=== PATIENT | female | born 1980 | race Caucasian/White ===

== ENCOUNTER 2017-03-15 15:59 | Emergency (ER) | payer SELFPAY ==
[~2017-03-15] VITALS: Ht 162.6 cm; Wt 62.1 kg
[~2017-03-15 15:59] MED LIST: BACL10TA4 PO; LIOT5TAB PO; NAPR500T1 PO
[2017-03-15 16:12] VITALS: BP 122/74
--- NOTE | 2017-03-15 16:49 | NUR ---
Pt taken to bed 7.
[2017-03-15 16:51] LABS: BASOPHILS # (AUTO) 0.1 K/uL (0.00-0.22); BASOPHILS % (AUTO) 1.6 % (0.0-2.0); EOSINOPHILS # (AUTO) 0.1 K/uL (0-0.4); EOSINOPHILS % (AUTO) 2.2 % (0.0-4.0); HEMATOCRIT 41.6 % (36-48); HEMOGLOBIN 13.4 g/dL (12.0-16.0); LYMPHOCYTES # (AUTO) 1.3 K/uL (2.5-16.5); LYMPHOCYTES % (AUTO) 23.7 % (20.5-51.1); MEAN CORPUSCULAR HEMOGLOBIN 30 pg (27-31); MEAN CORPUSCULAR HGB CONC 32 g/dL (33-37); MEAN CORPUSCULAR VOLUME 93 fL (80-94); MONOCYTES # (AUTO) 0.4 K/uL (0.8-1.0); MONOCYTES % (AUTO) 7.4 % (1.7-9.3); NEUTROPHILS # (AUTO) 3.6 K/uL (1.8-7.7); NEUTROPHILS % (AUTO) 65.1 % (42.2-75.2); PLATELET COUNT (AUTO) 239 K/uL (140-450); RED CELL DISTRIBUTION WIDTH 11.7 % (11.6-13.7); WHITE BLOOD COUNT (AUTO) 5.5 K/uL (4.8-10.8)
--- NOTE | 2017-03-15 16:57 | NUR ---
36/F presents to ED with complaints of increased thrist x1 week. Pt states "I'm really thirsty even though I drink a lot of water. I've been feeling lethargic. I get hot and cold." Pt also c/o bloating and patient states "I don't know if that has anything to do with it." Patient skin warm and dry normal in color. Pt is denying dizziness, denies pain, denies N/V/D, denies s/s of UTI. Patient states "Today I just felt worse." Patient is AOX4, calm with a flat affect. Clear speech. VSS. Pt is calm and no signs of distress noted. Boyfriend at bedside.
[2017-03-15 17:07] LABS: ALBUMIN 3.7 g/dL (3.4-5.0); ANION GAP 8.9 (8-16); CALCIUM 8.9 mg/dL (8.5-10.1); POTASSIUM 3.9 mmol/L (3.5-5.1); TOTAL BILIRUBIN 0.4 mg/dL (0.0-1.0); TOTAL PROTEIN, SERUM 7.3 g/dL (6.4-8.2)
--- NOTE | 2017-03-15 18:07 | NUR ---
AWAITING FOR DISPOSITION
--- NOTE | 2017-03-15 18:29 | NUR ---
Patient appears to be resting comfortably in bed. Vital Signs within normal limits. Respirations even and unlabored. Awaiting ERMD. Boyfriend at bedside.
--- NOTE | 2017-03-15 19:13 | NUR ---
Pt report given to ISRA BRYSON. Transfer of care at this time.
[2017-03-15] MEDS ORDERED: NACL 0.9% 1,000 ML IV ONE (19:50)
[2017-03-15 20:44] VITALS: BP 126/81
--- NOTE | 2017-03-15 20:44 | NUR ---
IV removed, catheter intact and site benign. Applied folded 4x4 gauze and tape to stop bleeding.
--- NOTE | 2017-03-15 20:46 | NUR ---
Patient discharged with v/s stable. Written and verbal after care instructions given and explained. Patient alert, oriented and verbalized understanding of instructions. Ambulatory with steady gait. All questions addressed prior to discharge. ID band removed. Patient advised to follow up with PMD. Rx of MIRALAX POWDER AND MECLIZINE 25MG given. Patient educated on indication of medication including possible reaction and side effects. Opportunity to ask questions provided and answered.
--- NOTE | 2017-03-15 20:46 | NUR ---
Note carla in EDM - 03/15/17 at 2046 by JASWANT Patient discharged with v/s stable. Written and verbal after care instructions given and explained. Patient alert, oriented and verbalized understanding of instructions. Ambulatory with steady gait. All questions addressed prior to discharge. ID band removed. Patient advised to follow up with PMD. Rx of MIRALAX POWDER given. Patient educated on indication of medication including possible reaction and side effects. Opportunity to ask questions provided and answered.
== END 2017-03-15 20:46 | disposition home or self-care (01) ==
LOC: MED 15:59
DX: R42 Dizziness and giddiness (principal); R03.0 Elevated blood-pressure reading, without diagnosis of hypertension; R68.2 Dry mouth, unspecified; R14.0 Abdominal distension (gaseous); R53.83 Other fatigue; Z98.51 Tubal ligation status
CPT/HCPCS: 36415; 74022; 80053; 81002; 81025; 82948; 85025; 96360; 99285; J7030